=== PATIENT | female | born 1940 | race Caucasian/White ===

== ENCOUNTER 2020-03-30 14:33 | Outpatient (CLI) | payer MEDICARE, SELFPAY ==
--- NOTE | 2020-03-30 14:44 | MM_ITS ---
WS: [id number] BILATERAL DIGITAL SCREENING MAMMOGRAPHY WITH CAD CLINICAL INFORMATION: SCREENING HISTORY: Screening mammogram. No current complaints. COMPARISON: None. TECHNIQUE: Bilateral CC and MLO views. FINDINGS: Scattered fibroglandular densities bilaterally. No suspicious focal mass, asymmetry, calcifications, or architectural distortion. No evidence of malignancy. Punctate and lucent centered calcifications r ight breast. MM/[place] [id number] IMPRESSION: BI-RADS: 2-Benign FOLLOW UP: 1 Year Follow-up Recommend return to annual screening mammography.
== END 2020-03-30 14:34 | disposition home or self-care (01) ==
LOC: RADSHAW 14:42
PROVIDERS: PCP Family Medicine; Visit Provider Family Medicine
DX: Z12.31 Encounter for screening mammogram for malignant neoplasm of breast (principal)
CPT/HCPCS: 77067

== ENCOUNTER → 2021-10-06 14:39 | Outpatient (BNVA) | payer MEDICARE, SELFPAY | PROVIDERS: PCP Family Medicine; Referring Provider Family Medicine; Visit Provider Specialist | DX: M17.12 Unilateral primary osteoarthritis, left knee (principal); M21.162 Varus deformity, not elsewhere classified, left knee; M25.562 Pain in left knee | CPT/HCPCS: 73560; 73565; 99204; 99214 ==

== ENCOUNTER → 2022-03-24 09:28 | Outpatient (BNVA) | payer MEDICARE, SELFPAY | PROVIDERS: PCP Family Medicine; Visit Provider Family Medicine | DX: Z00.00 Encounter for general adult medical examination without abnormal findings (principal); I10 Essential (primary) hypertension; Z79.899 Other long term (current) drug therapy | CPT/HCPCS: 80053; 80061; 82607; 83036; 84443; 85025 ==

== ENCOUNTER → 2024-01-15 10:07 | Outpatient (BNVA) | payer MEDICARE, SELFPAY | PROVIDERS: PCP Family Medicine; Visit Provider Family Medicine | DX: I10 Essential (primary) hypertension (principal); R73.9 Hyperglycemia, unspecified | CPT/HCPCS: 80053; 83036 ==

== ENCOUNTER → 2024-03-05 09:39 | Outpatient (BNVA) | payer MEDICARE, SELFPAY | PROVIDERS: PCP Family Medicine; Visit Provider Student in an Organized Health Care Education/Training Program | DX: M17.12 Unilateral primary osteoarthritis, left knee (principal); M25.561 Pain in right knee; M25.562 Pain in left knee; Z01.818 Encounter for other preprocedural examination | CPT/HCPCS: 20610; 73560; 73565; 99204; J3301 ==

== ENCOUNTER → 2024-05-13 08:39 | Outpatient (BNVA) | payer MEDICARE, SELFPAY | PROVIDERS: PCP Family Medicine; Visit Provider Family Medicine | DX: I10 Essential (primary) hypertension (principal) | CPT/HCPCS: 80053 ==

== ENCOUNTER 2024-05-16 09:53 | Outpatient (CLI) | payer MEDICARE, SELFPAY ==
--- NOTE | 2024-05-16 09:57 | XR_ITS ---
WS: [id number] Lumbar spine, 3 views, 05/16/2024 Clinical Data: R sciatica Comparison: None. Findings: No compression fractures or subluxation is seen. There is a levoscoliosis with spurring of all the lumbar vertebral bodies. There is degenerative disc narrowing at every lumbar level along with facet joint arthritis. The transverse processes and SI joints are normal. XR/XR lumbar spine 2-3V* [id number] Impression: 1. 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 2. Multilevel degenerative disc narrowing with facet joint arthritis.
--- NOTE | 2024-05-16 09:57 | XR_ITS ---
WS: [id number] Right hip, AP and frog-leg views of the right hip, 05/16/2024 Clinical Data: worsening R hip pain Comparison: None. Findings: There is narrowing, sclerosis and cyst formation especially of the right femoral head. The right SI joint and pubic symphysis are unremarkable. There is osteoarthritis of the lower lumbar vertebra. The soft tissues are normal. XR/XR hip RT 2-3V wo/w pel* [id number] Impression: Severe osteoarthritis of the right hip.
== END 2024-05-16 09:54 | disposition home or self-care (01) ==
LOC: RAD 09:55
PROVIDERS: PCP Family Medicine; Visit Provider Family Medicine
DX: M54.31 Sciatica, right side (principal); M16.11 Unilateral primary osteoarthritis, right hip; M41.86 Other forms of scoliosis, lumbar region; M47.896 Other spondylosis, lumbar region; R93.7 Abnormal findings on diagnostic imaging of other parts of musculoskeletal system; M85.651 Other cyst of bone, right thigh
CPT/HCPCS: 72100; 73502

== ENCOUNTER → 2024-05-28 08:28 | Outpatient (BNVA) | payer MEDICARE, SELFPAY | PROVIDERS: PCP Family Medicine; Visit Provider Orthopaedic Surgery | DX: M47.816 Spondylosis without myelopathy or radiculopathy, lumbar region (principal) | CPT/HCPCS: 72110; 99204 ==

== ENCOUNTER → 2024-06-04 09:54 | Outpatient (BNVA) | payer MEDICARE, SELFPAY | PROVIDERS: PCP Family Medicine; Visit Provider Student in an Organized Health Care Education/Training Program | DX: M16.11 Unilateral primary osteoarthritis, right hip (principal) | CPT/HCPCS: 99214 ==

== ENCOUNTER 2024-06-07 07:53 | Outpatient (CLI) | payer MEDICARE, SELFPAY ==
--- NOTE | 2024-06-07 08:00 | MR_ITS ---
WS: [id number] MRI LUMBAR SPINE NONCONTRAST TECHNIQUE: Sagittal T1, T2 and STIR imaging. Axial T1 and T2 imaging. CLINICAL INFORMATION: lumbar pain COMPARISON: None. FINDINGS: S-shaped lumbar scoliosis. No acute compression. Multilevel disc space narrowing throughout the lumbar spine. Grade 1 anterolisthesis L4 on L5. Small disc protrusions in the lower thoracic spine worse at T11-T12 with mild central canal stenosis. Severe LEFT T11-T12 and moderate to severe LEFT T12-L1 foraminal narrowing. L1-L2: Disc osteophyte complex with endplate ridging. Moderate central canal stenosis. Severe impingement subarticular recess bilaterally with moderate bony foraminal narrowing. Moderate facet arthropathy. L2-L3: Disc osteophyte complex with moderate central canal stenosis. Severe impingement subarticular recess. Severe RIGHT and moderate LEFT foraminal narrowing. L3-L4: Disc osteophyte complex with moderate central canal stenosis and severe impingement on the subarticular recess. Moderate facet arthropathy. Severe RIGHT foraminal narrowing. L4-L5: Severe central canal stenosis with impingement of the subarticular recess bilaterally. Moderate RIGHT foraminal narrowing. Moderate to advanced facet arthropathy. L5-S1: Disc osteophyte complex with impingement LEFT S1 nerve root. Severe LEFT bony foraminal narrowing. Moderate facet arthropathy. Visualized pelvic bony structures: Normal. Paravertebral soft tissues: Normal. MR/MR lumbar spine wo con* [id number] IMPRESSION: 1. Lumbar scoliosis. No acute compression. Grade 1 anterolisthesis L4 on L5. 2. Moderate central canal stenosis L1-2, L2-3, and L3-4 with severe impingemen t on the subarticular recess bilaterally. 3. Severe central canal stenosis L4-5 with severe impingement subarticular rec ess bilaterally. Advanced facet arthropathy at this level with grade 1 anteroli sthesis. 4. Severe LEFT T11-T12 and moderate to severe LEFT T12-L1 foraminal narrowin g. 5. Multilevel moderate to severe foraminal narrowing worse at bilateral L1-2, RIGHT L2-3, RIGHT L3-4, RIGHT L4-5, and LEFT L5-S1.
== END 2024-06-07 07:54 | disposition home or self-care (01) ==
PROVIDERS: PCP Family Medicine; Visit Provider Orthopaedic Surgery
DX: M47.816 Spondylosis without myelopathy or radiculopathy, lumbar region (principal); M51.369 Other intervertebral disc degeneration, lumbar region without mention of lumbar back pain or lower extremity pain; M54.31 Sciatica, right side; M41.86 Other forms of scoliosis, lumbar region; M48.061 Spinal stenosis, lumbar region without neurogenic claudication; R93.7 Abnormal findings on diagnostic imaging of other parts of musculoskeletal system; M47.896 Other spondylosis, lumbar region; M48.07 Spinal stenosis, lumbosacral region; M51.24 Other intervertebral disc displacement, thoracic region; M48.04 Spinal stenosis, thoracic region; M48.05 Spinal stenosis, thoracolumbar region; M25.78 Osteophyte, vertebrae; M47.897 Other spondylosis, lumbosacral region
CPT/HCPCS: 72148

== ENCOUNTER → 2024-06-13 08:08 | Outpatient (BNVA) | payer MEDICARE, SELFPAY | PROVIDERS: PCP Family Medicine; Visit Provider Orthopaedic Surgery | DX: M43.16 Spondylolisthesis, lumbar region (principal) | CPT/HCPCS: 99214 ==

== ENCOUNTER → 2024-07-05 09:06 | Outpatient (BNVA) | payer MEDICARE, SELFPAY | PROVIDERS: PCP Family Medicine; Visit Provider Student in an Organized Health Care Education/Training Program | DX: M16.11 Unilateral primary osteoarthritis, right hip (principal) | CPT/HCPCS: 20610; 77002; J3301; J9999 ==

== ENCOUNTER → 2024-08-26 09:08 | Outpatient (BNVA) | payer MEDICARE, SELFPAY | PROVIDERS: PCP Family Medicine; Visit Provider Physician Assistant | DX: M16.11 Unilateral primary osteoarthritis, right hip (principal) | CPT/HCPCS: 99213 ==

== ENCOUNTER → 2024-09-10 08:54 | Outpatient (BNVA) | payer MEDICARE, SELFPAY | PROVIDERS: PCP Family Medicine; Visit Provider Orthopaedic Surgery | DX: M43.16 Spondylolisthesis, lumbar region (principal) | CPT/HCPCS: 99213 ==

== ENCOUNTER → 2024-09-17 09:20 | Outpatient (BNVA) | payer MEDICARE, SELFPAY | PROVIDERS: PCP Family Medicine; Referring Provider Orthopaedic Surgery; Visit Provider Nurse Practitioner Family | DX: M54.9 Dorsalgia, unspecified (principal) | CPT/HCPCS: 99214 ==

== ENCOUNTER → 2024-10-16 08:59 | Outpatient (BNVA) | payer MEDICARE, SELFPAY | PROVIDERS: PCP Family Medicine; Visit Provider Student in an Organized Health Care Education/Training Program | DX: M16.11 Unilateral primary osteoarthritis, right hip (principal) | CPT/HCPCS: 73502; 99214 ==

== ENCOUNTER 2024-11-11 12:34 | Outpatient (CLI) | payer MEDICARE, SELFPAY ==
--- NOTE | 2024-11-11 13:00 | CT_ITS ---
WS: [id number] CT RIGHT hip for YVES procedure HISTORY: M16.11 - Unilateral primary osteoarthritis, right hip Date: 11/11/2024 1:01 PM COMPARISON: None available. TECHNIQUE: Protocol for YVES total hip replacement has been obtained. This includes axial imaging from the hip joint through the knee joint. DLP: [id number] FINDINGS: Degenerative arthritis sacroiliac joints. Osteopenia. Advanced degenerative arthritis both hips with subchondral cystic change and sclerosis in the femoral heads and acetabulum bilaterally. Hypertrophic changes. [id number] articulation. Vascular calcification. Prior RIGHT TKA. Tiny fat-containing umb ilical hernia. Advanced facet arthropathy lower lumbar spine. CT/CT hip RT YVES [id number] IMPRESSION: CT imaging provided for YVES robotic total hip replacement.
== END 2024-11-11 12:35 | disposition home or self-care (01) ==
LOC: RAD 12:36
PROVIDERS: PCP Family Medicine; Visit Provider Student in an Organized Health Care Education/Training Program
DX: M16.0 Bilateral primary osteoarthritis of hip (principal); M47.898 Other spondylosis, sacral and sacrococcygeal region; M85.80 Other specified disorders of bone density and structure, unspecified site; Z96.651 Presence of right artificial knee joint
CPT/HCPCS: 73700

== ENCOUNTER → 2024-11-27 09:18 | Outpatient (BNVA) | payer MEDICARE, SELFPAY | PROVIDERS: PCP Family Medicine; Visit Provider Physician Assistant | DX: M16.11 Unilateral primary osteoarthritis, right hip (principal) | CPT/HCPCS: 99213 ==

== ENCOUNTER 2024-11-27 10:35 | Outpatient (CLI) | payer MEDICARE, SELFPAY ==
[2024-11-27 11:59] LABS: Hematocrit 39.0 % (36-47); Hemoglobin 12.90 g/dL (11.27-16.99); Mean Corpuscular HGB Conc 33.1 g/dL (30-55); Mean Corpuscular Hemoglobin 32.7 pg (27-33); Mean Corpuscular Volume 99.0 fl (85-98); Nucleated Red Blood Cells % 0 %; Platelet Count 326 10^3/cmm (157-399); Red Blood Count 3.94 10^6/uL (3.85-5.65); White Blood Count 7.52 10^3/uL (3.29-11.43)
[2024-11-27 12:00] LABS: Glucose Urine UA Negative (Normal); Nitrate Urine Negative (Negative); Specific Gravity, Urine 1.007 (1.005-1.030)
[2024-11-27 12:05] LABS: Add Urine Microscopic? YES
[2024-11-27 12:18] LABS: Alanine Aminotransferase 7 U/L (0-33); Albumin Level 4.5 g/dL (3.5-5.2); Alkaline Phosphatase 88 U/L (35-105); Anion Gap 15.5 (5-19); Aspartate Amino Transferase 19 U/L (0-32); Blood Urea Nitrogen 12 mg/dL (8-23); Calcium 9.6 mg/dL (8.5-10.5); Carbon Dioxide 25 mmol/L (22-29); Chloride 100 mmol/L (98-107); Globulin 3.5 g/dL (1.3-4.6); Glucose 102 mg/dL (65-115); Osmolality Calculated 282 mOsm/kg (285-295); Potassium 4.5 mmol/L (3.5-5.1); Sodium 136 mmol/L (136-145); Total Protein 8.0 g/dL (6.6-8.7)
== END 2024-11-27 10:36 | disposition home or self-care (01) ==
PROVIDERS: PCP Family Medicine; Visit Provider Student in an Organized Health Care Education/Training Program
DX: Z01.818 Encounter for other preprocedural examination (principal)
CPT/HCPCS: 36415; 80053; 81001; 85025

== ENCOUNTER → 2024-12-02 10:49 | Outpatient (BNVA) | payer MEDICARE, SELFPAY | PROVIDERS: PCP Family Medicine; Visit Provider Family Medicine | DX: Z01.818 Encounter for other preprocedural examination (principal) | CPT/HCPCS: 93005 ==

== ENCOUNTER → 2024-12-16 05:43 | Day surgery (SDC) | payer MEDICARE, SELFPAY ==
--- NOTE | 2024-12-15 08:59 | ANES.PREANE2 ---
Pre-Anesthetic Assessment Height/Weight: Height 5 ft 1 in Preop Diagnosis: Osteoarthritis of the hip Operation Date: 12/16/24 07:00 Proposed Procedures p Varghese Robot Anterior Hip Arthroplasty(Right) - Isiah Schulz DO Was Beta Ezio taken within 24 hours: N/A Was Clonidine taken within 24 hours: N/A Social No alcohol and No tobacco Exam alert, oriented x 3, clear to auscultation bilaterally and regular rate & rhythm Airway Submandibular: within normal limits Cervical ROM: within normal limits Mallampati: Class II Dentition: full Anesthetic Plan ASA status: 3 Anesthesia: MAC and Regional (specify below) Other: No prior issues with anesthesia NPO since yesterday evening History of hypertension on lisinopril and amlodipine GERD, controlled with omeprazole Labs reviewed from 11/27/2024 and acceptable for procedure EKG sinus rhythm Plan for spinal anesthetic Medications/Allergies Home Medications ?Medication ?Instructions ?Recorded ?Confirmed ?Last Taken ?Type cholecalciferol (vitamin D3) 50 50 mcg PO DAILY 03/05/24 12/16/24 1 Week Ago History mcg (2,000 unit) capsule ~12/09/24 lisinopril 20 mg tablet 20 mg PO DAILY #90 tabs 04/29/24 12/16/24 12/15/24 Rx meloxicam 15 mg tablet 15 mg PO DAILY PRN arthritis #90 06/03/24 12/16/24 1 Week Ago Rx tabs ~12/09/24 amlodipine 5 mg tablet 5 mg PO DAILY #90 tabs 09/23/24 12/16/24 12/16/24 Rx omeprazole 20 mg capsule,delayed 20 mg PO DAILY for stomach 10/11/24 12/16/24 1 Week Ago Rx release protection #90 caps ~12/09/24 multivitamin 1 tab PO DAILY 12/02/24 12/16/24 1 Week Ago History ~12/09/24 Allergies Allergy/AdvReac Type Severity Reaction Status Date / Time No Known Allergies Allergy Verified 12/16/24 05:52 [facility] Anesthesia Medical History Hx of post-polio syndrome Hypertension Surgical History History of total right knee replacement Family History Father Abdominal aneurysm CAD (coronary artery disease) Denies family history of Diabetes Family history of premature coronary artery disease Cancer Hypertension Stroke Social History Smoking and tobacco/nicotine status: never used tobacco/nicotine Second hand smoke exposure: No Alcohol intake: never Substance/Drug Use: never Adopted: No Caregiver/support person: No Lives independently: Yes Housing: House Marital status: / Number of children: 2 Number of grandchildren: 3 Highest education level completed: 11th Grade service: No Current occupational status: retired Current occupational exposures/hazards: No Pets and animals: No Sexually active: No Do you think of yourself as: Straight/Heterosexual Current gender identity: Female Special carlos needs: No Agree to transfusion: Yes
[2024-12-16 05:53] VITALS: BP 142/73; PULSE 87; RESP 16; TEMP 36.6; O2SAT 96; BMI 25.4
[2024-12-16] MEDS: acetaminophen 1,000 MG/100 ML PIGGYBACK 400 MG IV (06:21)
[2024-12-16 06:39] LABS: Hematocrit 36.0 % (36-47); Hemoglobin 12.30 g/dL (11.27-16.99); Mean Corpuscular HGB Conc 34.2 g/dL (30-55); Mean Corpuscular Hemoglobin 32.9 pg (27-33); Mean Corpuscular Volume 96.3 fl (85-98); Nucleated Red Blood Cells % 0 %; Platelet Count 322 10^3/cmm (157-399); Red Blood Count 3.74 10^6/uL (3.85-5.65); White Blood Count 7.14 10^3/uL (3.29-11.43)
--- NOTE | 2024-12-16 07:33 | PM.MISC ---
Miscellaneous Note Purpose of Documentation: Orthopedic update: Patient at this point in time was updated unfortunately the software system that communicates with her CT scan to the robot is having a systemwide issue today with the company that we use [employer]. Unfortunately at this point in time we will have to cancel the case today and reschedule plans for later this week hopefully on Monday. Patient and son understand agree with current plan. All questions answered at this time. Once again apologize for the inconvenience which they understood and will plan on proceeding with procedure this Monday. Family will be updated by the office this week. Isiah Schulz DO
== END ==
PROVIDERS: Physician Assistant; PCP Family Medicine; Visit Provider Student in an Organized Health Care Education/Training Program
PROC: 8E0Y0CZ Robotic Assisted Procedure of Lower Extremity, Open Approach (ICD-10-PCS; CPT 27130; principal; 2024-12-16 07:00)
DX: Z53.8 Procedure and treatment not carried out for other reasons (principal)
CPT/HCPCS: 85025; 86850; 86900; J0131; J7030

== ENCOUNTER 2024-12-20 14:24 | Observation (INO) | payer MEDICARE, SELFPAY ==
[2024-12-20] VITALS (15 sets, daily range): BP systolic 111–161; BP diastolic 45–88; PULSE 60–98; RESP 10–21; TEMP 36.1–36.5; O2SAT 93–100; BMI 23.4
--- NOTE | 2024-12-20 10:50 | ANES.PREANE2 ---
Pre-Anesthetic Assessment Height/Weight: Height 5 ft 1 in Preop Diagnosis: Hip arthritis Operation Date: 12/20/24 12:45 Proposed Procedures p Varghese Robot Anterior Hip Arthroplasty(Right) - Isiah Grafton, DO Social No alcohol and No tobacco Exam alert, oriented x 3, clear to auscultation bilaterally and regular rate & rhythm Airway Submandibular: within normal limits Cervical ROM: within normal limits Mallampati: Class III Dentition: full Anesthetic Plan ASA status: 3 Anesthesia: MAC and Regional (specify below) Other: No prior issues with anesthesia NPO since yesterday evening History of hypertension on lisinopril and amlodipine GERD, controlled with omeprazole Patient has spondylolisthesis at L4-L5 and ambulates with a cane. No prior back surgeries Labs reviewed from 12/16/2024 and acceptable for procedure EKG sinus rhythm Plan for spinal anesthetic Medications/Allergies Home Medications ?Medication ?Instructions ?Recorded ?Confirmed ?Last Taken ?Type cholecalciferol (vitamin D3) 50 50 mcg PO DAILY 03/05/24 12/16/24 1 Week Ago History mcg (2,000 unit) capsule ~12/09/24 lisinopril 20 mg tablet 20 mg PO DAILY #90 tabs 04/29/24 12/16/24 12/15/24 Rx meloxicam 15 mg tablet 15 mg PO DAILY PRN arthritis #90 06/03/24 12/16/24 1 Week Ago Rx tabs ~12/09/24 omeprazole 20 mg capsule,delayed 20 mg PO DAILY for stomach 10/11/24 12/16/24 12/19/24 Rx release protection #90 caps multivitamin 1 tab PO DAILY 12/02/24 12/16/24 1 Week Ago History ~12/09/24 amlodipine 5 mg tablet See Rx Instructions .Route 12/17/24 12/19/24 12/19/24 Rx .COMPLEX #90 tabs Allergies Allergy/AdvReac Type Severity Reaction Status Date / Time No Known Allergies Allergy Verified 12/19/24 09:30 [facility] Anesthesia Medical History Hx of post-polio syndrome Hypertension Surgical History History of total right knee replacement Family History Father Abdominal aneurysm CAD (coronary artery disease) Denies family history of Diabetes Family history of premature coronary artery disease Cancer Hypertension Stroke Social History Smoking and tobacco/nicotine status: never used tobacco/nicotine Second hand smoke exposure: No Alcohol intake: never Substance/Drug Use: never Adopted: No Caregiver/support person: No Lives independently: Yes Housing: House Marital status: / Number of children: 2 Number of grandchildren: 3 Highest education level completed: 11th Grade service: No Current occupational status: retired Current occupational exposures/hazards: No Pets and animals: No Sexually active: No Do you think of yourself as: Straight/Heterosexual Current gender identity: Female Special carlos needs: No Agree to transfusion: Yes
--- NOTE | 2024-12-20 11:10 | P.HPUD_ITS ---
Surgery/Procedure H&P Update DATE OF PROCEDURE: December 20, 2024 DATE H&P PERFORMED: 11/27/24 H&P UPDATE INFORMATION: I have reviewed H&P completed within last 30 days, I have examined patient prior to procedure and No changes to prior documentation CHANGES TO PREVIOUS DOCUMENTATION: No change in health since last office visit cleared the preoperative clearance process ready proceed with surgical invention for right total hip arthroplast y?Varghese robotic assisted plan is for anterior approach. Patient understands agrees to current plan. Questions answered. PREOP DIAGNOSIS: Right hip arthritis PRIMARY INDICATION FOR PROCEDURE: Right hip degenerative joint disease PLANNED PROCEDURE: Operation Date: 12/20/24 12:45 Proposed Procedures p Varghese Robot Anterior Hip Arthroplasty(Right) - Isiah Schulz DO
[2024-12-20] MEDS: acetaminophen 1,000 MG/100 ML PIGGYBACK 400 MG IV ×2 (11:15→19:34)
[2024-12-20 11:18] LABS: Hematocrit 37.2 % (36-47); Hemoglobin 12.90 g/dL (11.27-16.99); Mean Corpuscular HGB Conc 34.7 g/dL (30-55); Mean Corpuscular Hemoglobin 33.6 pg (27-33); Mean Corpuscular Volume 96.9 fl (85-98); Nucleated Red Blood Cells % 0 %; Platelet Count 356 10^3/cmm (157-399); Red Blood Count 3.84 10^6/uL (3.85-5.65); White Blood Count 8.64 10^3/uL (3.29-11.43)
[2024-12-20] MEDS: ceFAZolin 2,000 MG in sodium chloride 0.9% (plus) 50 ML 100 MG IV ×2 (11:29→20:43)
[2024-12-20] MEDS: tranexamic acid 1,000 mg/10mL SDV 1000 MG (12:14)
[2024-12-20] MEDS: lidocaine-epi 1% 20 mL INJ INJECTION (12:30)
--- NOTE | 2024-12-20 14:29 | XR_ITS ---
WS: [id number] XR hip RT 2-3V wo/w pel* [id number] REASON FOR EXAM: OR PICS FINDINGS: Total right hip arthroplasty. Components of the arthroplasty are intact and in proper position and alignment. No focal bony abnormality. XR/XR hip RT 2-3V wo/w pel* [id number] IMPRESSION: Total right hip arthroplasty without abnormality.
--- NOTE | 2024-12-20 14:58 | P.BOP_ITS ---
Date of Procedure: 12/20/2024 Surgeon: Isiah Schulz DO Tape Stringer(s): None Procedure(s) performed: Right total hip arthroplasty?Varghese robotic assisted (anterior approach) Findings of the procedure(s): Underwent procedure as planned without issues or complications taken recovery in stable condition. Estimated blood loss: 200 mL Specimen(s) removed: Femoral head and acetabular reamings removed Post-operative diagnosis: Right hip DJD
--- NOTE | 2024-12-20 15:00 | P.OP_ITS ---
Operative Report Date of procedure: December 20, 2024 Surgeon: Isiah Schulz DO Procedure: Preoperative diagnosis: Right hip degenerative joint disease Post-op diagnosis: Same Procedure done: Right total hip arthroplasty?Varghese robotic assisted?anterior?approach Implants: [place] Trident acetabular shell size 50 mm Fernanda acetabular screw 30 mm Fernanda acetabular screw 15 mm [place] insignia hip stem high offset size 2 femur stem Trident 0 degree polyethylene 36 degree inner diameter alpha code D 36 mm femoral head ceramic -5 mm Surgeon: Isiah Schulz DO Anesthesia: General Estimated blood loss: 200 mL IV fluids: 1500 mL Complications: None Findings: See operative report narrative Condition: stable Disposition: floor Brief History: Patient is a 84-year-old female presented to my outpatient office setting findings consistent with [id number] arthritis advanced degenerative joint disease of the right hip.? We talked about treatment options as far as nonoperative and operative intervention. Pt has failed conservative treatment.? Patient's right hip degenerative joint disease has been so severe she has been minimally ambulatory over the past couple months given her pain and decreased range of motion.? we talked about treatment options at this point time pt understands the risk benefits complication alternatives surgical nonsurgical treatment options.? Patient understands the risk of surgery and agrees to procee d.? Patient has underwent a preoperative evaluation. Pt cleared for surical intervention. Pt understood and was agreeable to proceed with a right total hip arthroplasty consent was reviewed and signed with patient.?? All questions answered.? Patient will be admitted postoperatively. Procedure: Patient was seen evaluated in the preoperative holding area.? Consent was reviewed and signed with patient.? Correct operative extremity was then marked. ? All questions were answered at this time.? Once cleared by anesthesia used to brought back to the operative suite he then underwent anesthesia per the anesthesia department of a spinal anesthetic. The patient was administered tranexamic acid and preop antibiotics, and placed in the supine position. All bony prominences were properly padded, securely fixed to the table, and administered?general?anesthetic. The patient was subsequently transferred from the hospital bed to the [place] table. Bilateral lower extremities were placed in the traction boots. The pelvis was well approximated against the perineal post.? Final timeout performed.? Patient received appropriate preoperative antibiotics. Both hips were then prepped and draped in a normal orthopedic fashion.? Started with a small incision 2 fingerbreadths above the ASIS on the left iliac wing to place? pelvic arrays.? Small incision was made directly down to bone.? 3 pelvic pins were placed with excellent fixation.? The robotic array was secured to the nonoperative iliac wing using sterile technique. The extremity was then definitively draped in standard, sterile fashion.? The array was found to be visible by the robot. ?A standard??anterior?supine approach was performed to the?operative hip joint. The skin was incised down to the tensor fascia yuli muscle and fascia. Fascia was split longitudinally in line with its fibers. The tensor fascia yuli muscle was retracted laterally. The appropriate retractors were placed superiorly. Lateral circumflex vessels were identified and appropriately ligated. The hip capsule was then identified.? Appropriate retractors were placed superiorly and inferiorly along the capsule directly onto bone.??That was split longitudinally up to the acetabular rim in line with the femoral neck. The femoral capsule was found to be significantly hypertrophic, thickened, and significantly fibrotic. The capsule was then elevated both superiorly and inferiorly down to the lesser trochanter as well as up towards the greater trochanter.? Tag stitches were applied with 0 Ethibond into the capsule.? Femoral check point was?then inserted and confirmed on the lateral trochanter proximal femur.?? A distal marker?of a sterile EKG lead was placed into the distal femur for measurement of leg lengths.? Preoperative leg lengths were registered and confirmed at this point. Next the appropriate-sized neck cut was then performed after being measured with robotic assistance. Femoral head was removed atraumatically this was found to have significant degenerative changes and deformity with significant osteophyte formation.? Femoral head was found to be severely degenerated and flattening with, eburnated bone. Acetabulum was also inspected and was found to have peripheral osteophytes as well as no evidence of cartilage consistent with gvcp-no-nnaa arthritis.? Appropriate retractors were then placed in the?anterior?and posterior wall.? The remaining labrum was then excised from the periphery of the acetabular rim. Pulvinar was excised.? At this point registration for the Avrghese was performed on the acetabular side and confirmed. Once confirmed, any osteophytes able to be were removed. We planned 40 degrees of lateral opening and 20 degrees of anteversion. At this point, we reamed and medialized to the inner wall of the acetabulum with a size?50?reamer for line to line fit.?The acetabulum was found to have good bleeding bone throughout.?? Reamer removed excellent bleeding bone circumferentially with sufficient?anterior?and posterior wall. ?The definitive acetabular cup 50 mm was inserted and impacted under?Varghese guidance with the appropriate amount of anteversion and lateral opening. It was then secured with 2x 6.5 mm cancellous screws in appropriate safe zone position.? I subsquently drilled measured and place appropriate length acetabular screws which measured 30 mm and 15 mm.? These had excellent fixation final x-rays were taken of the acetabular work and showed a seated and well fixed acetabular cup with appropriate position acetabular screws.? ?Next a 36-mm X3 neutral liner was impacted into the?acetabular shell and secured. Hip was then irrigated with copious amounts of irrigation. At this point, the remaining femoral releases were then performed allowing the adequate mobilization of the?right?femur.? Traction was confirmed to being off to the right lower extremity and the femur was then externally rotated, extended, and adducted giving adequate exposure of the proximal femur in the surgical wound. Box cut was then used to enter the intramedullary canal of the?femur. Canal finder was placed down the canal of the?operative femur. Appropriate-sized broaches from a size 0 up to a size 2 were impacted down the operative femoral canal with the appropriate amount of anteversion.? A multiple trials were attempted and it was found?that? -5mm neck was found to be most appropriate for a soft tissue tensioning offset, stability and the leg lengths?that was confirmed with Varghese. ?Stability was then assessed and excellent stability with patient external rotation of greater?than 90 degrees and traction with no evidence of hip instability.? Appropriate tension noted of the soft tissues. At this point, the hip was relocated.?Varghese guidance was again used to confirm appropriate leg lengths.? I utilized C arm to evaluate for leg lengths as well I did slightly at the lengthen comparative to the contralateral extremity but this was the appropriate size for patient's stability and excellent soft tissue tensioning as well as this was mapped with her preoperative planning given she had been shortened given her arthritis.? Operative hip was then re-dislocated using a bone hook. All trials were then removed from the?operative femur. Adequate exposure was then once again obtained. The trials were removed. The definitive [place] insignia high offset size 2 femur stem was impacted down the?femoral canal with the appropriate amount of anteversion. The appropriate sized head 36 mm ceramic -5 mm was impacted onto the trunnion, and the?operative?hip was then relocated with traction and internal rotation. Final measurements were obtained on Varghese confirming leg lengths and offset.? Once again hip stability was assessed and found to have excellent stability and appropriate soft tissue tensioning.? Hip was irrigated with copious amounts of irrigation.? Vancomycin powder was placed within the wound bed for added infection prophylaxis.? The superior and inferior leaflets of the capsule were then closed with Ethibond suture.? Vicryl tag stitches were removed.? The superficial layer of the tensor fascia yuli fascia was closed using 0 stratafix suture in a running fashion.? Subcutaneous tissues were closed with running 3-0 Stratafix, skin was closed with 4-0 monocryl.?Surgical Prineo glue and steri strips were?applied and covered with a tarsha incisional dressing to the operative side.?The incision on the non-operative side for the robotic array was irrigated and closed with layered fashion of 0 Vicryl, 2-0 Vicryl and running Monocryl suture and surgical glue and covered with Silverlon. ?The patient was subsequently awoken per Anesthesia and transferred to PACU in satisfactory condition. ?Leg lengths and rotational profile were found to be appropriate. ? DISPOSITION: The patient will be admitted to the hospital for initiation of DVT prophylaxis, physical therapy, pain control. The patient is to weight bear as tolerated.?Anterior?hip precautions, postoperative antibiotics,?postoperative TXA and Eliquis?for DVT prophylaxis.? Patient will receive appropriate discharge instructions as well as pain medication postoperatively and will follow up in my office in 2 weeks.? Patient with work with PT/OT.? Internal medicine will be consulted for medical management
--- NOTE | 2024-12-20 15:17 | ANE.PACU2 ---
Inpatient post-anesthesia follow up: Airway intact: Yes Vital signs: Temperature 97.9 F Pulse Rate 68 Respiratory Rate 15 Blood Pressure 132/78 Pulse Oximetry 99 Oxygen Delivery Me thod Room Air Oxygen Flow Rate 10 Fraction of Inspir ed Oxygen Hydration adequate: Yes Nausea and vomiting: No Pain level: 1 Mental status: Baseline
--- NOTE | 2024-12-20 15:53 | P.CONIM_ITS ---
Providers/Reason For Consult 2 Consulting Physician/Specialty*: Orthopedic Reason for Consult*: Medical management Attending Physician: Isiah Schulz DO Primary Care Provider: Lazara Baca MD History of Present Illness History of Present Illness Radha Chung is a 84 year old female With a past medical history of hypertension, no history of CAD, history of diabetes, no history of strokes, who presents [facility] for a right total hip arthroplasty. Patient was seen postoperatively, currently in OB12, she is alert oriented x 3, following all commands, no pain complaints, no chest pain, palpitations, no shortness of breath Review of Systems 2 Card: Denies: chest pain Resp: Denies: dyspnea Medications/Allergies Home Medications ?Medication ?Instructions ?Recorded ?Confirmed ?Last Taken ?Type cholecalciferol (vitamin D3) 50 50 mcg PO DAILY 12/20/24 1 Week Ago History mcg (2,000 unit) capsule ~12/09/24 lisinopril 20 mg tablet 20 mg PO DAILY #90 tabs 04/2012/20/24 12/19/24 Rx meloxicam 15 mg tablet 15 mg PO DAILY PRN arthritis #90 06/03/24 12/20/24 1 Week Ago Rx tabs ~12/09/24 omeprazole 20 mg capsule,delayed 20 mg PO DAILY for st omach 10/11/24 12/20/24 12/19/24 Rx release protection #90 caps multivitamin 1 tab PO DAILY 12/02/2406/11 1 Week Ago History ~12/09/24 amlodipine 5 mg tablet See Rx Instructions .Route 0 12/17/24 12/20/24 12/20/24 Rx .COMPLEX #90 tabs Allergies Allergy/AdvReac Type Severity Reaction Status Date / Time No Known Allergies Allergy Verified 12/19/24 09:30 PFSH Acute 2 PFSH: Medical History Hx of post-polio syndrome Hypertension Surgical History History of total right knee replacement Family History Father Abdominal aneurysm CAD (coronary artery disease) Denies family history of Diabetes Family history of premature coronary artery disease Cancer Hypertension Stroke Social History Smoking and tobacco/nicotine status: never used tobacco/nicotine Second hand smoke exposure: No Alcohol intake: never Substance/Drug Use: never Adopted: No Caregiver/support person: No Lives independently: Yes Housing: House Marital status: / Number of children: 2 Number of grandchildren: 3 Highest education level completed: 11th Grade service: No Current occupational status: retired Current occupational exposures/hazards: No Pets and animals: No Sexually active: No Do you think of yourself as: Straight/Heterosexual Current gender identity: Female Special carlos needs: No Agree to transfusion: Yes Vitals/I&O/Wt Last Vital Signs Temp 97.7 F 12/20/24 15:31 Pulse 80 12/20/24 15:31 Resp 15 12/20/24 15:31 BP 152/66 12/20/24 15:31 Pulse Ox 98 12/20/24 15:31 O2 Del Method Room Air 12/20/24 15:31 O2 Flow Rate 10 12/20/24 14:56 12/20/24 12/20/24 12/20/24 06:59 14:59 22:59 Intake Total 1650 / 1650 Output Total 300 / 300 Balance 1350 / 1350 Weight last 48 hrs Weight 56.245 kg Physical Exam 2 Const: COMMON NORMALS: no acute distress and patient oriented x3 Resp: COMMON NORMALS: normal respiratory effort, No retractions, No use of accessory muscles and clear to auscultation bilaterally AUSCULTATION: clear to auscultation bilaterally Cardio: COMMON NORMALS: regular rate, regular rhythm, S1 normal heart sound present and S2 normal heart sound present RATE: regular rate RHYTHM: r egular rhythm HEART SOUNDS: S1 normal heart sound present and S2 normal heart sound present GI: COMMON NORMALS: Normal to inspection, nondistended, normoactive bowel sounds present and non-tender Extremity: COMMON NORMALS: no calf tenderness and no pedal edema Neuro: COMMON NORMALS: patient oriented x3, CN's II-XII intact bilaterally and moves all extremities Psych: COMMON NORMALS: mental status grossly normal Urinary Catheter Management: Mccarthy: Cath Placed During This Visit: yes Urinary Catheter Date of Insertion: 12/20/24 Urinary Catheter Time of Insertion: 11:45 Data 12/20/24 11:05 A&P Assessment and plan 1. Hypertension: 2. Anxiety: 3. Osteoarthritis of right hip: Plan: Osteoarthritis right hip - Status post right hip total arthroplasty - Pain control anticoagulation as per orthopedic team Hypertension continue lisinopril, Norvasc Full code Eliquis for DVT prophylaxis PDMP PDMP Reviewed: Not Reviewed Consult Attestations 2 Medical Necessity Statement: Patient requires hospitalization for right hip total arthroplasty Diagnoses Hypertension I10 Anxiety F41.9 Osteoarthritis of right hip M16.11
[2024-12-20] MEDS: calcium carb-vit d 600mg/400unit 1 Tablet 1 EACH PO (16:28)
[2024-12-20] MEDS: sennosides-docusate Tablet 2 TAB PO (16:28)
[2024-12-20] MEDS: oxyCODONE 5 mg IR Tab/Cap PO (16:29)
[2024-12-20] MEDS: mupirocin oint 22 gm 1 APPLIC NASAL (16:30)
[2024-12-20] MEDS: chlorhexidine gluconate 0.12% Btl 473 mL 30 ML MUCOUS MEM (16:30)
[2024-12-20] MEDS: tranexamic acid 1,000 MG/100 ML PREMIX 600 MG IV (20:28)
[2024-12-21] VITALS (7 sets, daily range): BP systolic 121–145; BP diastolic 51–78; PULSE 65–75; RESP 15–16; TEMP 36.6–36.8; O2SAT 95–99
[2024-12-21] MEDS: oxyCODONE 5 mg IR Tab/Cap PO ×2 (01:01→14:55)
[2024-12-21] MEDS: acetaminophen 1,000 MG/100 ML PIGGYBACK 400 MG IV ×2 (03:16→10:43)
[2024-12-21] MEDS: ceFAZolin 2,000 MG in sodium chloride 0.9% (plus) 50 ML 100 MG IV ×2 (04:29→10:43)
[2024-12-21] MEDS: sennosides-docusate Tablet 2 TAB PO (05:01)
[2024-12-21] MEDS: multivitamin therapeutic Tablet 1 TAB PO (05:01)
[2024-12-21] MEDS: calcium carb-vit d 600mg/400unit 1 Tablet 1 EACH PO (05:01)
[2024-12-21] MEDS: chlorhexidine gluconate 0.12% Btl 473 mL 30 ML MUCOUS MEM (05:02)
[2024-12-21] MEDS: mupirocin oint 22 gm 1 APPLIC NASAL (05:02)
[2024-12-21 05:22] LABS: Hematocrit 27.7 % (36-47); Hemoglobin 9.30 g/dL (11.27-16.99); Mean Corpuscular HGB Conc 33.6 g/dL (30-55); Mean Corpuscular Hemoglobin 33.2 pg (27-33); Mean Corpuscular Volume 98.9 fl (85-98); Nucleated Red Blood Cells % 0 %; Platelet Count 241 10^3/cmm (157-399); Red Blood Count 2.80 10^6/uL (3.85-5.65); White Blood Count 11.08 10^3/uL (3.29-11.43)
[2024-12-21 05:44] LABS: Anion Gap 14.2 (5-19); Blood Urea Nitrogen 11 mg/dL (8-23); Calcium 8.3 mg/dL (8.5-10.5); Carbon Dioxide 22 mmol/L (22-29); Chloride 101 mmol/L (98-107); Creatinine Clr Calc Pharmacy 43.8034; Glucose 146 mg/dL (65-115); Osmolality Calculated 278 mOsm/kg (285-295); Potassium 4.2 mmol/L (3.5-5.1); Sodium 133 mmol/L (136-145)
--- NOTE | 2024-12-21 09:09 | PM.DCS ---
Discharge Providers Date of Admission: 12/20/24 14:24 Date of Discharge: December 21, 2024 Attending Provider at Admission: Isiah Schulz DO Attending Provider at Discharge: Isiah Schulz DO Consults: Dr. Kellogg?hospitalist Primary Care Provider: Lazara Baca MD Diagnoses at Discharge Discharge Diagnosis 1. S/P total right hip arthroplasty: 2. Hypertension: 3. Anxiety: 4. Osteoarthritis of right hip: Reason for Visit Reason for Visit: M16.11 Brief History: Status post right total hip arthroplasty?Varghese robotic assisted (anterior approach) Hospital Course Hospital Course Patient was brought to the hospital through the preoperative holding area with plan for right total hip arthroplasty for right hip dengerative joint disease. Once cleared by anesthesia for surgery subsequently was taken back to the operative suite underwent anesthesia per the anesthesia department and then underwent right total hip arthroplasty with Varghese robotic assistance anterior approach without any complications. Patient was then subsequently taken back to PACU in stable condition recovering well. Once recovered, patient was then subsequently admitted to the floor postoperatively. Internal medicine was consulted for medical management assistance. Patient weightbearing as tolerated to the right lower extremity, anterior hip precautions. PT/OT. Pain control. DVT prophylaxis. Postoperative antibiotics and TXA. dressing was change as needed. Internal medicine was on board and appreciate their medical management and assistance. Pt was determined on postoperative day 1 the patient was stable for discharge from orthopedic as well as internal medicine standpoint. Patient's labs were monitored daily. Patient will receive appropriate pain medication as well as DVT prophylaxis postoperatively. Appropriate discharge instructions as well. Patient was then discharged in stable condition. Patient will discharge home. Pt will follow-up with Orthopedics in the office in 2 weeks. Patient understands and agrees with current plan. All questions answered. Understands there is any issues or concerns and contact the office. Physical Exam Narrative: Right hip examination: Dressing on in place, clean dry and intact to both right operative hip and iliac wing on the left side. No evidence of saturation. Patient has normal postoperative swelling and tenderness to palpation to the right hip and left iliac wing. Compartments are soft compressible,'s calf soft and nontender. Sensations intact to light touch distally. Distal pulses are palpable. Patient is able to wiggle toes as well as plantarflex and dorsiflex ankle. Patient is able to perform straight leg raise. Urinary Catheter Management: Mccarthy: Cath Placed During This Visit: yes, but has since been removed by the nurse Reason for Continuing Indwelling Catheter: Decision to DC Catheter Urinary Catheter Date of Insertion: 12/20/24 Urinary Catheter Time of Insertion: 11:45 Date Urinary Catheter Removed: 12/21/24 Time Urinary Catheter Discontinued: 19:12 Discharge Data Studies Completed and Pending Completed Studies During Hospitalization Category Date Time Status XR hip RT 2-3V wo/w pel* [id number] Routine Exams 12/20/24 14:29 Completed Pending at discharge Category Date Time Status C-arm Fluoroscopy [id number] Routine Exams 12/20/24 10:23 Ordered A1C [Hemoglobin A1C] Routine Lab 12/21/24 08:51 Ordered Basic Metabolic Panel AM LABS Lab 12/22/24 04:00 Ordered Basic Metabolic Panel AM LABS Lab 12/23/24 04:00 Ordered Basic Metabolic Panel Routine Lab 12/20/24 11:30 Ordered Complete Blood Count w/Auto AM LABS Lab 12/22/24 04:00 Ordered Complete Blood Count w/Auto AM LABS Lab 12/23/24 04:00 Ordered Hemoglobin and Hematocrit Routine Lab 12/21/24 11:00 Ordered Radiology Impressions Hip/Pelvis X-Ray 12/20/24 14:29 IMPRESSION: Total right hip arthroplasty without abnormality. Laboratory Results WBC 11.08 10^3/uL (3.29-11.43) 12/21/24 05:00 RBC 2.80 10^6/uL (3.85-5.65) L 12/21/24 05:00 Hgb 9.30 g/dL (11.27-16.99) L 12/21/24 05:00 Hct 27.7 % (36-47) L 12/21/24 05:00 MCV 98.9 fl (85-98) H 12/21/24 05:00 MCH 33.2 pg (27-33) H 12/21/24 05:00 MCHC 33.6 g/dL (30-55) 12/21/24 05:00 RDW 12.1 % (12.1-15.1) 12/21/24 05:00 Plt Count 241 10^3/cmm (157-399) D 12/21/24 05:00 MPV 8.5 fL (7.4-10.4) 12/21/24 05:00 Neut % (Auto) 76.7 % 12/21/24 05:00 Lymph % (Auto) 13.4 % 12/21/24 05:00 Lagrange % (Auto) 9.4 % 12/21/24 05:00 Eos % (Auto) 0.0 % 12/21/24 05:00 Baso % (Auto) 0.1 % 12/21/24 05:00 Neut # (Auto) 8.50 10^3/uL (1.8-7.7) H 12/21/24 05:00 Lymph # (Auto) 1.5 10^3/uL (0.8-4.8) 12/21/24 05:00 [place] # (Auto) 1.0 10^3/uL (0.2-0.9) H 12/21/24 05:00 Eos # (Auto) 0.0 10^3/uL (0.0-0.8) 12/21/24 05:00 Baso # (Auto) 0.0 10^3/uL (0.0-0.1) 12/21/24 05:00 Nucleated RBC % (auto) 0 % 12/21/24 05:00 Nucleated RBCs # 0.0 /100WBC 12/21/24 05:00 Sodium 133 mmol/L (136-145) L 12/21/24 05:00 Potassium 4.2 mmol/L (3.5-5.1) 12/21/24 05:00 Chloride 101 mmol/L (98-107) 12/21/24 05:00 Carbon Dioxide 22 mmol/L (22-29) 12/21/24 05:00 Anion Gap 14.2 (5-19) 12/21/24 05:00 BUN 11 mg/dL (8-23) 12/21/24 05:00 Creatinine 0.8 mg/dL (0.5-0.9) 12/21/24 05:00 GFR Calculation Not Reportable 12/21/24 05:00 Glucose 146 mg/dL (65-115) H 12/21/24 05:00 Calculated Osmolality 278 mOsm/kg (285-295) L 12/21/24 05:00 Calcium 8.3 mg/dL (8.5-10.5) L 12/21/24 05:00 Blood Type O Positive 12/20/24 11:05 Rho(D) Type Rh positive 12/20/24 11:05 Antibody Screen Negative 12/20/24 11:05 Vitals Last Vital Signs Temp 97.7 F 12/20/24 15:31 Pulse 65 12/21/24 05:15 Resp 15 12/21/24 05:15 BP 145/66 12/21/24 05:15 Pulse Ox 97 12/21/24 05:15 O2 Del Method Room Air 12/21/24 05:15 O2 Flow Rate 10 12/20/24 14:56 Discharge Plan Discharge Patient Disposition: Home Condition: Stable Prescriptions: New oxycodone 5 mg tablet 5 mg PO Q6H PRN (Reason: pain postop) 7 Days Qty: 28 0RF Eliquis 2.5 mg tablet 2.5 mg PO BID 35 Days Qty: 70 0RF calcium carbonate-vitamin D3 [Calcium 600 + D(3)] 600 mg-10 mcg (400 unit) tablet 1 tab PO DAILY 30 Days Qty: 30 0RF cefadroxil 500 mg capsule 500 mg PO BID 7 Days Qty: 14 0RF ondansetron 4 mg tablet,disintegrating 4 mg PO Q8H 3 Days Qty: 9 0RF Continued multivitamin Tablet 1 tab PO DAILY lisinopril 20 mg tablet 20 mg PO DAILY Qty: 90 3RF omeprazole 20 mg capsule,delayed release(DR/EC) 20 mg PO DAILY Qty: 90 1RF amlodipine 5 mg tablet See Rx Instructions .ROUTE .COMPLEX Qty: 90 0RF Dose Instruction: Take 1 tablet by mouth once daily Rx Instructions: Take 1 tablet by mouth once daily Held cholecalciferol (vitamin D3) 50 mcg (2,000 unit) capsule 50 mcg PO DAILY Hold Instructions: Resume on 01/18/25. meloxicam 15 mg tablet 15 mg PO DAILY PRN (Reason: arthritis) Qty: 90 3RF Hold Instructions: Resume on 01/24/25. [employer] OK for DC: Orthopedics Referrals: Isiah Schulz DO [Physician, Orthopedics] Discharge Diet: Advance as tolerated Patient Instructions: Acute Wound Care (DC), Opioid Safety, Post Anesthesia Care, Patient Portal & Carlos Instructions Activity Restrictions/Additional Instructions: Orthopedic discharge instructions: Right hip Cynthia Dressing--Keep dressing on and dry. . disconnect battery pack when showering. Cynthia dressing will stay on until follow up appt in 2 weeks. The battery pack for the dressing will at 5-7 days. Battery pack can be removed and discarded once batteries . Patient should keep dressings clean dry and intact Okay to shower over dressings if they do become wet these should be removed and new dressings applied Left hip dressing--Keep incisions clean dry and intact, leave Silverlon bandage dressings on in place for 7 days after that may rinse incisions with warm soapy water pat dry and redress with a dry dressing Weight-bear as tolerated to operative lower extremity Anterior hip precautions as instructed by physical therapy Ice as needed for pain and swelling Take pain medication as prescribed Take antinausea medication as needed Take antibiotic as prescribed for antibiotic infection prophylaxis Supplement with Citracal vitamin D for bone health and healing Pain medication can cause constipation. take [id number] stool softeners and or MiraLAX. Take blood thinner as prescribed (Eliquis) Follow-up in the orthopedic office in 2 weeks Contact the office for any questions or concerns Discharge Attestations Time Spent in Discharge Care*: less than 30 min Quality Metrics Clinical Quality Measures [ No reported AMI, CVA or VTE this stay] Coding Level of Care Code Acute Code for Chg Fwd Diagnoses S/P total right hip arthroplasty Z96.641 Hypertension I10 Anxiety F41.9 Osteoarthritis of right hip M16.11 Time Spent (min) 25
[2024-12-21] MEDS: APIXABAN 2.5 MG TABLET PO (09:17)
--- NOTE | 2024-12-21 12:23 | P.PN_ITS ---
Subjective 2 Subjective: Patient was alert oriented x 3, following all commands no pain complaints, no fevers, chills, no abdominal pain, discussed risk and benefits of anticoagulant therapy, she voiced understanding, all questions answered Vitals/I&O/Wt Last Vital Signs Temp 97.7 F 12/20/24 15:31 Pulse 65 12/21/24 05:15 Resp 15 12/21/24 05:15 BP 145/66 12/21/24 05:15 Pulse Ox 97 12/21/24 05:15 O2 Del Method Room Air 12/21/24 05:15 O2 Flow Rate 10 12/20/24 14:56 12/20/24 12/21/24 12/21/24 22:59 06:59 14:59 Intake Total 250 / 1900 150 / 2050 Output Total 900 / 1200 600 / 1800 Balance -650 / 700 -450 / 250 Weight last 48 hrs Weight 56.245 kg Physical Exam 2 Const: COMMON NORMALS: no acute distress and patient oriented x3 Resp: COMMON NORMALS: normal respiratory effort, No retractions, No use of accessory muscles and clear to auscultation bilaterally AUSCULTATION: clear to auscultation bilaterally Cardio: COMMON NORMALS: regular rate, regular rhythm, S1 normal heart sound present and S2 normal heart sound present RATE: regular rate RHYTHM: r egular rhythm HEART SOUNDS: S1 normal heart sound present and S2 normal heart sound present GI: COMMON NORMALS: Normal to inspection, nondistended, normoactive bowel sounds present and non-tender Extremity: COMMON NORMALS: no pedal edema Neuro: COMMON NORMALS: patient oriented x3 Psych: COMMON NORMALS: mental status grossly normal Urinary Catheter Management: Mccarthy: Cath Placed During This Visit: yes, but has since been removed by the nurse Reason for Continuing Indwelling Catheter: Decision to DC Catheter Urinary Catheter Date of Insertion: 12/20/24 Urinary Catheter Time of Insertion: 11:45 Date Urinary Catheter Removed: 12/21/24 Time Urinary Catheter Discontinued: 19:12 Data 12/21/24 05:00 12/21/24 05:00 A&P Assessment and plan 1. Hypertension: 2. Anxiety: 3. Osteoarthritis of right hip: Plan: Osteoarthritis right hip - Status post right hip total arthroplasty - Pain control anticoagulation as per orthopedic team Hypertension continue lisinopril, Norvasc Full code Eliquis for DVT prophylaxis PDMP PDMP Reviewed: Last Reviewed 12/21/24 12:02 EDT by Khadar Dixon MD Attestations 2 Medical Necessity Statement*: Patient will be discharged today Diagnoses Hypertension I10 Anxiety F41.9 Osteoarthritis of right hip M16.11
== END 2024-12-21 15:30 | disposition home or self-care (01) ==
LOC: OBGYN 14:25
PROVIDERS: Physician Assistant; Admitting Provider Student in an Organized Health Care Education/Training Program; PCP Family Medicine; Visit Provider Student in an Organized Health Care Education/Training Program
PROC: 8E0Y0CZ Robotic Assisted Procedure of Lower Extremity, Open Approach (ICD-10-PCS; CPT 27130; principal; 2024-12-20 12:45)
DX: M17.11 Unilateral primary osteoarthritis, right knee (principal); K21.9 Gastro-esophageal reflux disease without esophagitis; I10 Essential (primary) hypertension; F41.9 Anxiety disorder, unspecified; E11.9 Type 2 diabetes mellitus without complications
CPT/HCPCS: 27447; 20985; 36415; 51702; 73502; 76000; 80048; 85025; 86850; 86900; 97110; 97116; 97162; 97165; 97530; C1776; G0378; J0131; J0690; J1100; J1885; J2405; J2704; J3010; J3373; J7030; J7120; J9999

== ENCOUNTER → 2025-01-03 10:10 | Outpatient (BNVA) | payer MEDICARE, SELFPAY | PROVIDERS: PCP Family Medicine; Visit Provider Physician Assistant | DX: Z98.890 Other specified postprocedural states (principal); Z96.641 Presence of right artificial hip joint | CPT/HCPCS: 73502; 99024 ==

== ENCOUNTER → 2025-02-18 10:09 | Outpatient (BNVA) | payer MEDICARE, SELFPAY | PROVIDERS: PCP Family Medicine; Visit Provider Physician Assistant | DX: Z98.890 Other specified postprocedural states (principal); Z96.641 Presence of right artificial hip joint | CPT/HCPCS: 73502; 99024 ==